=== PATIENT | female | born 1935 | race Caucasian/White ===

== ENCOUNTER → 2017-03-31 | Outpatient (CLI) | payer MEDICARE, OTHER ==
[~2017-03-31] MED LIST: ADVAIR 500-501 EACH IH; ADVAIR 5001 DISK W/D PO; AGGRENOX PO; ALBUTEROL17 GM INH; ALDACTONE PO; ALPRAZOLAM PO; AMBIEN PO; COREG CR10 MG PO; COREG PO; COUMADIN PO; COUMADIN4 MG PO; COUMADIN5 MG PO; CYANOCOBAL1000 MCG/M INJ; FERRO-TIME325 MG PO; FOLIC ACID1 MG PO; HCTZ PO; HYDROCODON-ACE1 EAC5 PO; K-DUR20 ME1 PO; LASIX PO; LISINOPRIL PO; LOPRESSOR PO; NEXIUM PO; PREVACID PO; THEOPHYLLIN PO; UNIPHYLL PO; ZESTRIL5 MG PO; ZOCOR PO
--- NOTE | ~2017-03-31 | US85 ---
[facility] A Service of [facility] & [facility] RADIOLOGY TEXT RESULTS PATIENT: BERNARDO TAM LOCATION: CNIV : 31 UNIT #: [id number] AGE: [address]: Olivia Edmonds SEX: F ORDER DR: [id number] [facility] [address] [place], [place] [address] [id number] O MR#: [id number] Acc #: [id number] NAME: BERNARDO TAM : 1935 SEX: F STUDY DATE/TIME: 03/31/2017 9:48 UNIT: CNIV ROOM: STUDY DESCRIPTION: [facility] [place] Veins Unilat or [facility] St[facility] Attending Physician: Olivia Edmonds A.P.R.N. Referring Physician: Olivia Edmonds A.P.R.N. Ordering Physician: Olivia Edmonds A.P.R.N. Primary Care Physician: Bart Jimenez M.D. MEDICAL IMAGING REPORT This report is preliminary unless electronic signature is present EXAM Left lower extremity venous duplex, 03/31/2017 HISTORY Left calf edema for 1 month. Evaluate for deep vein thrombosis. FINDINGS Reddy-scale images of the left lower extremity were obtained as well as Doppler waveform spectral analysis and color flow Doppler imaging. There is normal blood flow and compressibility in the left common femoral vein, deep femoral vein, superficial femoral vein and popliteal vein. Normal blood flow and compressibility is seen in the left calf veins. At the area of lateral left calf swelling there is a 9.6 cm x 4.8 cm x 3.6 cm hypoechoic mass. Clinical correlation is recommended. Consider correlation with MRI for further evaluation of this finding. IMPRESSION 1. No evidence of deep vein thrombosis within the left lower extremity. 2. 9.6 cm hypoechoic mass lateral aspect of the left calf which is of unknown etiology. Clinical correlation is recommended. Consider correlation with MRI. STAT * RESULT Dictated by... Srinivas Ferraro M.D. THIS IS AN ELECTRONICALLY VERIFIED REPORT Srinivas Ferraro M.D. at 04/01/2017 6:16 AM DAV/[place] TD: 03/31/2017 10:16 JOB #: [id number] [facility]. [facility] A Service of [facility] & [facility] RADIOLOGY TEXT RESULTS PATIENT: BERNARDO TAM LOCATION: [facility] : 31 UNIT #: [id number] AGE: [address]: Olivia Edmonds SEX: F ORDER DR: MEDICAL IMAGING REPORT Page 1 of 1 COPY
== END | disposition home or self-care (01) ==
LOC: CNIV 09:09
DX: M21.962 Unspecified acquired deformity of left lower leg (principal); R60.0 Localized edema
CPT/HCPCS: 93971; J1170